=== PATIENT | female | born 1970 | race Caucasian/White ===

== ENCOUNTER 2016-07-01 16:41 | Emergency (ER) | payer OTHER ==
[~2016-07-01] VITALS: Ht 182.9 cm; Wt 65.7 kg
[~2016-07-01 16:41] MED LIST: PROG1CAP21 PO
[2016-07-01 16:55] VITALS: BP 125/91; PULSE 97; RESP 18; TEMP 98.3; O2SAT 96
[2016-07-01] MEDS ORDERED: ORPHENADRINE INJ 60 MG/2 ML AMP IM ONE (18:15)
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
[2016-07-01] MEDS ORDERED: PRED50 PO (22:08)
[2016-07-01] MEDS ORDERED: CYCL1TAB29 PO (22:08)
[2016-07-01] MEDS ORDERED: IBUP800T23 PO (22:08)
[2016-07-01 22:30] VITALS: BP 109/68
== END 2016-07-01 22:40 | disposition home or self-care (01) ==
LOC: PHED 16:41 → PHEFT 22:40
DX: M48.02 Spinal stenosis, cervical region (principal); T14.8 Other injury of unspecified body region; M62.838 Other muscle spasm; V43.62XA Car passenger injured in collision with other type car in traffic accident, initial encounter; Y92.410 Unspecified street and highway as the place of occurrence of the external cause; F17.210 Nicotine dependence, cigarettes, uncomplicated
CPT/HCPCS: 70450; 72125; 72141; 84703; 96372; 99284; J2360

== ENCOUNTER 2017-09-04 13:49 | Emergency (ER) | payer MEDICAID, OTHER ==
[~2017-09-04] VITALS: Ht 180.3 cm; Wt 61.5 kg
[~2017-09-04 13:49] MED LIST changes: +CYCL10TA PO; +IBUP1TAB7 PO; +PRED50 PO; -PROG1CAP21 PO
[2017-09-04 15:00] VITALS: BP 114/75; PULSE 78; RESP 18; TEMP 98; O2SAT 98
[2017-09-04] MEDS ORDERED: NAPR220C22 PO (15:29)
--- NOTE | 2017-09-04 16:53 | PD ---
HPI Chief Complaint: Psychiatric Symptoms Time Seen by Provider: 16:39 Travel History International Travel<30 days: No Contact w/Intl Traveler<30days: No Traveled to known affect area: No History of Present Illness HPI 47-year-old female brought into the emergency department under the Yang act for suicidal ideation. Patient's called the police after finding his on a chair on the porch with his belt tied to the ceiling fan. There was a suicide note as well. Patient's states that the 2 of them have been arguing over the past 3 days. Patient has no history of suicidal ideation or attempts in the past. Patient has no significant medical problems other than chronic low back pain. She only takes Naprosyn for her back. She takes no other medications. She has no known drug allergies. PFSH Past Medical History Blood Disorders: No Patient Takes Glucophage: No Diminished Hearing: No Neurologic: Yes (PED STRUCK IN LATE 80'S, COMATOSE X 3 DAYS. ) Immunizations Current: No Tetanus Vaccination: > 5 Years ?: Not LMP: 06/2017 : 7 Para: 4 Miscarriage: 2 : 1 Dilation and Curettage (D&C): Yes (1) Past Surgical History Appendectomy: Yes Other Surgery: Yes (fusion lower back - Jan 2017 in [place] per pt.) Social History Alcohol Use: Yes (2 LIQUOR DRINKS/DAY "Every once in awhile") Tobacco Use: Yes (1PPD) Substance Use: No (Pt denies. ) Allergies-Medications (Allergen,Severity, Reaction): Coded Allergies: No Known Allergies (Verified , 07/01/16) Reported Meds & Prescriptions Reported Meds & Active Scripts Active Reported Aleve (Naproxen Sodium) 220 Mg Capsule PO DIRECTED Review of Systems Except as stated in HPI: all other systems reviewed are Neg General / Constitutional: No: Fever Eyes: No: Visual changes HENT: No: Headaches Cardiovascular: No: Chest Pain or Discomfort Respiratory: No: Shortness of Breath Gastrointestinal: No: Abdominal Pain Genitourinary: No: Dysuria Musculoskeletal: No: Pain Skin: No Rash Neurologic: No: Weakness Psychiatric: Positive: Depression, Suicidal Ideations, No: Disorder of Thought , Mood Disorder, Substance Abuse, Homicidal Ideation Endocrine: No: Polydipsia Hematologic/Lymphatic: No: Easy Bruising Physical Exam Narrative GENERAL: Patient appears sad but otherwise no acute distress SKIN: Warm and dry. Normal color. Normal turgor. No signs of trauma HEAD: Atraumatic. Normocephalic. EYES: Pupils equal and round. No scleral icterus. No injection or drainage. ENT: No nasal bleeding or discharge. Mucous membranes pink and moist. Pharynx is clear. Airways patent NECK: Trachea midline. Supple and nontender. CARDIOVASCULAR: Regular rate and rhythm. RESPIRATORY: No accessory muscle use. Clear to auscultation. Breath sounds equal bilaterally. GASTROINTESTINAL: Abdomen soft, non-tender, nondistended. Hepatic and splenic margins not palpable. MUSCULOSKELETAL: Extremities without clubbing, cyanosis, or edema. No obvious deformities. NEUROLOGICAL: Awake and alert. No obvious cranial nerve deficits. Motor grossly within normal limits. Five out of 5 muscle strength in the arms and legs. Normal speech. PSYCHIATRIC: Appropriate mood and affect; insight and judgment normal. Data Data Last Documented VS Vital Signs Date Time Temp Pulse Resp B/P (MAP) Pulse Ox O2 Delivery O2 Flow Rate FiO2 09/04/17 15:00 98.0 78 18 114/75 (88) 98 Room Air Orders Orders Diet Regular Basic (09/04/17 Dinner) [facility] Medical Decision Making Medical Screen Exam Complete: Yes Emergency Medical Condition: Yes Differential Diagnosis Suicidal ideation. Yang act. Depression Narrative Course Patient appears medically stable at time of exam Psychiatric labs ordered as per protocol. Psych screen is ordered. Condition: Stable Charli Acuna Sep 04, 2017 16:53
[2017-09-04 18:42] LABS: AUTOMATED NEUTROPHIL # 2.7 TH/MM3 (1.8-7.7); BASOPHIL % 0.8 % (0.0-2.0); EOSINOPHIL % 0.8 % (0.0-4.0); HEMATOCRIT 40.8 % (35.0-46.0); HEMOGLOBIN 14.2 GM/DL (11.6-15.3); LYMPH % 40.7 % (9.0-44.0); LYMPHOCYTE # 2.2 TH/MM3 (1.0-4.8); MEAN CELL VOLUME 99.5 FL (80.0-100.0); MEAN CORPUSCULAR HEMOGLOBIN 34.6 PG (27.0-34.0); MEAN CORPUSCULAR HGB CONC 34.8 % (32.0-36.0); MEAN PLATELET VOLUME 6.9 FL (7.0-11.0); MONO % 7.2 % (0.0-8.0); MONOCYTE # 0.4 TH/MM3 (0-0.9); NEUT % 50.5 % (16.0-70.0); PLATELET COUNT 211 TH/MM3 (150-450); RED CELL DISTRIBUTION WIDTH 14.4 % (11.6-17.2); WHITE BLOOD COUNT 5.5 TH/MM3 (4.0-11.0)
[2017-09-04 19:00] VITALS: BP 111/70; PULSE 61; RESP 18
[2017-09-04 19:01] LABS: BICARBONATE 26.5 MEQ/L (21.0-32.0); BLOOD UREA NITROGEN 8 MG/DL (7-18); CALCIUM 9.3 MG/DL (8.5-10.1); CHLORIDE 108 MEQ/L (98-107); GLOMERULAR FILTRATION RATE 89 ML/MIN (>89); GLUCOSE,RANDOM 79 MG/DL (74-106); SODIUM (NA) 144 MEQ/L (136-145)
[2017-09-04 19:02] LABS: ALT (GPT) 22 U/L (10-53); AST (GOT) 23 U/L (15-37)
[2017-09-04 19:11] LABS: ALKALINE PHOSPHATASE 53 U/L (45-117); TOTAL BILIRUBIN ADULT 0.3 MG/DL (0.2-1.0); TOTAL PROTEIN 7.8 GM/DL (6.4-8.2)
[2017-09-04 22:37] VITALS: BP 121/62; PULSE 55; RESP 17; TEMP 98.7; O2SAT 96
[2017-09-05 02:34] VITALS: BP 115/61; PULSE 51; RESP 18; TEMP 98.2; O2SAT 95
[2017-09-05 06:39] VITALS: BP_SYST 129; BP_SYST 97; BP_DIAS 53; BP_DIAS 69; PULSE 52; PULSE 70; RESP 18; TEMP 98.2; TEMP 98.6; O2SAT 98; O2SAT 99
[2017-09-05 13:10] VITALS: BP 115/65; PULSE 55; RESP 16; O2SAT 96
[2017-09-05 13:12] VITALS: BP 107/67; PULSE 92; RESP 18; O2SAT 99
--- NOTE | 2017-09-05 15:37 | PD ---
History of Present Illness Chief Complaint: Adjustment disorder Time Seen by Provider: 15:00 Travel History International Travel<30 Days: No Contact w/Intl Traveler<30days: No Known affected area: No Legal Status Legal Status: Yang Act Yang Act Signed By: Bg Pittman History of Present Illness: This is a 47-year-old , white female who is brought into this facility under Yang act by the police department for suicidal ideation. Per the Yang act patient had written a "suicide note" and was found standing on a chair with a belt over after. Patient was also found to be intoxicated. Reviewed electronic medical records, labs, and discuss case with staff. Per staff the obtain collateral information from the who stated that this was unlike his and he would be comfortable with her being discharged. Patient's tox screen did show positive for alcohol. Evaluation performed in her room in [facility]. Patient was found awake, alert, and oriented 4. Her speech is clear, logical, and organized. She expresses embarrassment over her behavior last night. Her mood is good and her affect is euthymic. When asked what occurred she advises she and her have been purchasing a house and have encountered some difficulties on the way. These difficulties is have a cause them frustration and led to arguments over the past couple of days. Patient admits to drinking alcohol and states that she has no recollection of her behavior from last night. She reports that during the psych screen the nurse filled her in, and now she "cannot believe that she acted that way". She denies any history of mental illness or substance abuse. She reports drinking alcohol on weekends socially with her . This time she denies any suicidal ideation, homicidal ideation, visual or auditory hallucinations. She is not delusional at this time. [facility] Past Medical History Blood Disorders: No Patient Takes Glucophage: No Diminished Hearing: No Neurologic: Yes (PED STRUCK IN LATE 80'S, COMATOSE X 3 DAYS. ) Immunizations Current: No Tetanus Vaccination: > 5 Years ?: Not LMP: 06/2017 : 7 Para: 4 Miscarriage: 2 : 1 Dilation and Curettage (D&C): Yes (1) Past Surgical History Appendectomy: Yes Other Surgery: Yes (fusion lower back - Jan 2017 in [place] per pt.) Psychiatric History Psychiatric History Denies Hx Psychiatric Treatment: DENIES. IN THE 'S WAS PRESCRIBED AN ANTIDEPRESSANT AND DID NOT TAKE IT FOR LONG History of Inpatient Treatment: No Guns or firearms in home: No Social History Smokes 1 pack per day of cigarettes, drinks on weekends, denies illegal substance use. Hx Alcohol Use: Yes (2 LIQUOR DRINKS/DAY "Every once in awhile") Hx Tobacco Use: Yes (1PPD) Hx Substance Use: Yes Substance Use Type: Alcohol Hx of Substance Use Treatment: No Family Psychiatric History Denies familial history of suicide or mental illness diagnoses. Allergies-Medications (Allergen,Severity, Reaction): Coded Allergies: No Known Allergies (Verified , 07/01/16) Reported Meds & Prescriptions Reported Meds & Active Scripts Active Reported Aleve (Naproxen Sodium) 220 Mg Capsule PO DIRECTED Mental Status Examination Appearance: Appropriate, Disheveled Consciousness: Alert Orientation: x4 Motor Activity: Normal gait Speech: Unremarkable Language: Adequate Fund of Knowledge: Adequate Attention and Concentration: Adequate Memory: Unremarkable Mood: Appropriate, Good, Other (Reports feeling embarrassed over her behavior) Affect: Appropriate, Euthymic Thought Process & Associations: Intact Thought Content: Appropriate Hallucination Type: None Delusion Type: None Suicidal Ideation: No Suicidal Plan: No Suicidal Intention: No Homicidal Ideation: No Homicidal Plan: No Homicidal Intention: No Insight: Adequate Judgment: Adequate MDM Medical Decision Making Medical Record Reviewed: Yes Assessment/Plan This is a 47 year old , white female who presented under a Yang act to this facility for suicidal ideation and intoxication. Patient is unknown to this facility for mental health issues. She denies having any mental illness, inpatient treatment, or detox visits. Today patient is awake, alert, and oriented 4. Her speech is clear, logical, and organized. There is no indication of internal stimulation. She expresses remorse and embarrassment at her behavior from the night before. She states that she has no recollection of what transpired due to her alcohol intoxication. Collateral information was obtained from the by staff who stated that he has no problem with her returning to the home. At this time patient no longer meets Yang act criteria or inpatient admission criteria. Discussed this case with Dr. Tomas who also evaluated the patient and agrees with my evaluation. He is lifting the Yang act. She will be discharged to home and advised to return if her condition worsens. Orders Orders Diet Regular Basic (09/04/17 Dinner) Complete Blood Count With Diff (09/04/17 16:54) Comprehensive Metabolic Panel (09/04/17 16:54) Thyroid Stimulating Hormone (09/04/17 16:54) Psych Screen (09/04/17 16:54) Drug Screen, Random Urine (09/04/17 16:54) Alcohol (Ethanol) (09/04/17 16:54) Diet Regular Basic (09/05/17 Breakfast) Diet Regular Basic (09/05/17 Lunch) Results Vital Signs Date Time Temp Pulse Resp B/P (MAP) Pulse Ox O2 Delivery O2 Flow Rate FiO2 09/05/17 13:12 92 18 107/67 (80) 99 Room Air 09/05/17 13:10 55 16 115/65 (82) 96 Room Air 09/05/17 06:39 98.6 52 18 129/69 (89) 98 Room Air 09/05/17 02:34 98.2 51 18 115/61 (79) 95 Room Air 09/04/17 22:37 98.7 55 17 121/62 (81) 96 Room Air 09/04/17 19:00 61 18 111/70 (84) Room Air Laboratory Tests Test 09/04/17 18:20 09/04/17 18:21 White Blood Count 5.5 Red Blood Count 4.10 Hemoglobin 14.2 Hematocrit 40.8 Mean Corpuscular Volume 99.5 Mean Corpuscular Hemoglobin 34.6 Mean Corpuscular Hemoglobin Concent 34.8 Red Cell Distribution Width 14.4 Platelet Count 211 Mean Platelet Volume 6.9 Neutrophils (%) (Auto) 50.5 Lymphocytes (%) (Auto) 40.7 Monocytes (%) (Auto) 7.2 Eosinophils (%) (Auto) 0.8 Basophils (%) (Auto) 0.8 Neutrophils # (Auto) 2.7 Lymphocytes # (Auto) 2.2 Monocytes # (Auto) 0.4 Eosinophils # (Auto) 0.0 Basophils # (Auto) 0.0 CBC Comment AUTO DIFF Differential Comment AUTO DIFF CONFIRMED Blood Urea Nitrogen 8 Creatinine 0.70 Random Glucose 79 Total Protein 7.8 Albumin 4.0 Calcium Level 9.3 Alkaline Phosphatase 53 Aspartate Amino Transf (AST/SGOT) 23 Alanine Aminotransferase (ALT/SGPT) 22 Total Bilirubin 0.3 Sodium Level 144 Potassium Level 4.1 Chloride Level 108 Carbon Dioxide Level 26.5 Anion Gap 10 Estimat Glomerular Filtration Rate 89 Thyroid Stimulating Hormone 3rd Gen 0.471 Ethyl Alcohol Level 108 Urine Opiates Screen NEG Urine Barbiturates Screen NEG Urine Amphetamines Screen NEG Urine Benzodiazepines Screen NEG Urine Cocaine Screen NEG Urine Cannabinoids Screen NEG Diagnosis Primary Impression: Adjustment disorder Psychiatrically Cleared: Yes Condition: Stable Harriett Mauro Sep 05, 2017 15:37
--- NOTE | 2017-09-05 16:12 | PD ---
Physical Exam Time Seen by Provider: 16:[address] Tomas has evaluated patient, lifted Yang act and cleared the patient for discharge. Data Data Last Documented VS Vital Signs Date Time Temp Pulse Resp B/P (MAP) Pulse Ox O2 Delivery O2 Flow Rate FiO2 09/05/17 13:12 92 18 107/67 (80) 99 Room Air 09/05/17 06:39 98.6 Orders Orders Diet Regular Basic (09/04/17 Dinner) Complete Blood Count With Diff (09/04/17 16:54) Comprehensive Metabolic Panel (09/04/17 16:54) Thyroid Stimulating Hormone (09/04/17 16:54) Psych Screen (09/04/17 16:54) Drug Screen, Random Urine (09/04/17 16:54) Alcohol (Ethanol) (09/04/17 16:54) Diet Regular Basic (09/05/17 Breakfast) Diet Regular Basic (09/05/17 Lunch) Labs Laboratory Tests Test 09/04/17 18:20 09/04/17 18:21 White Blood Count 5.5 TH/MM3 Red Blood Count 4.10 MIL/MM3 Hemoglobin 14.2 GM/DL Hematocrit 40.8 % Mean Corpuscular Volume 99.5 FL Mean Corpuscular Hemoglobin 34.6 PG Mean Corpuscular Hemoglobin Concent 34.8 % Red Cell Distribution Width 14.4 % Platelet Count 211 TH/MM3 Mean Platelet Volume 6.9 FL Neutrophils (%) (Auto) 50.5 % Lymphocytes (%) (Auto) 40.7 % Monocytes (%) (Auto) 7.2 % Eosinophils (%) (Auto) 0.8 % Basophils (%) (Auto) 0.8 % Neutrophils # (Auto) 2.7 TH/MM3 Lymphocytes # (Auto) 2.2 TH/MM3 Monocytes # (Auto) 0.4 TH/MM3 Eosinophils # (Auto) 0.0 TH/MM3 Basophils # (Auto) 0.0 TH/MM3 CBC Comment AUTO DIFF Differential Comment AUTO DIFF CONFIRMED Blood Urea Nitrogen 8 MG/DL Creatinine 0.70 MG/DL Random Glucose 79 MG/DL Total Protein 7.8 GM/DL Albumin 4.0 GM/DL Calcium Level 9.3 MG/DL Alkaline Phosphatase 53 U/L Aspartate Amino Transf (AST/SGOT) 23 U/L Alanine Aminotransferase (ALT/SGPT) 22 U/L Total Bilirubin 0.3 MG/DL Sodium Level 144 MEQ/L Potassium Level 4.1 MEQ/L Chloride Level 108 MEQ/L Carbon Dioxide Level 26.5 MEQ/L Anion Gap 10 MEQ/L Estimat Glomerular Filtration Rate 89 ML/MIN Thyroid Stimulating Hormone 3rd Gen 0.471 uIU/ML Ethyl Alcohol Level 108 MG/DL Urine Opiates Screen NEG Urine Barbiturates Screen NEG Urine Amphetamines Screen NEG Urine Benzodiazepines Screen NEG Urine Cocaine Screen NEG Urine Cannabinoids Screen NEG MDM Supervised Visit with TIFFANY: No Narrative Course Dr. Tomas has evaluated patient, lifted Trey her and cleared the patient for discharge. Patient contracts safety. Denies suicidal or homicidal ideations. Patient will be provided community resource packet to JORGE for follow-up. Has friends and family for support. Patient was medically cleared by alternate provider prior to psych screening. Patient has been evaluated by psychiatry and and is now cleared for discharge. Diagnosis Primary Impression: Adjustment disorder Qualified Codes: F43.20 - Adjustment disorder, unspecified Referrals: JOSE (Out patient) [facility] Primary Care Physician Psychiatrist [facility] Patient Instructions: Abuse of Alcohol (ED), Alcohol Dependence (ED), Alcohol Intoxication (ED), General Instructions, Mood Disorders (ED) Additional Instruction: Contract safety to your self and others Stop drinking alcohol Follow-up in the community for community support, such as Alcoholics Anonymous Follow-up with psychiatry Follow-up with primary care provider Follow-up with Xander Saucedo Return to the emergency department immediately with worsening of symptoms Med/Other Pt SpecificInfo: No Change to Meds, No Meds Exist/No RX given Disposition: 01 DISCHARGE HOME Condition: Stable Roxann Strong Sep 05, 2017 16:12
== END 2017-09-05 16:35 | disposition home or self-care (01) ==
LOC: NEPJ 13:49
DX: F43.20 Adjustment disorder, unspecified (principal); F10.129 Alcohol abuse with intoxication, unspecified; Y90.5 Blood alcohol level of 100-119 mg/100 ml; R45.851 Suicidal ideations; G89.29 Other chronic pain; M54.5 Low back pain; F17.210 Nicotine dependence, cigarettes, uncomplicated
CPT/HCPCS: 80053; 80307; 84443; 85025; 99284